=== PATIENT | female | born 1960 | race Two or more races ===

== ENCOUNTER → 2024-05-07 | Outpatient (CLI) | payer OTHER, SELFPAY ==
--- NOTE | 2024-05-07 10:30 | XR_ITS ---
Examination: Breast ultrasound, unilateral, right complete Date and time of exam: May 07, 2024 1044 hours INDICATIONS: Outside mammogram January 24, 2024 11 mm focal asymmetry upper outer right breast Technique: Real-time shahid scale ultrasonographic imaging performed right breast including all 4 quadrants as well as nipple retroareolar and axillary region. Findings: 9:00 cyst 6 x 4 x 5 mm 10:00 oval mass versus glandular tissue 10 x 5 x 10 mm IMPRESSION: BI-RADS Category 3: Probably benign findings 10:00 oval mass versus glandular tissue 10 x 5 x 10 mm, recommend 6 month follow-up right breast sonography to document stability of this 10:00 lesion
--- NOTE | 2024-05-07 11:15 | XR_ITS ---
Examination: Diagnostic digital mammography, unilateral, right Computer aided detection 3-D breast Tomosynthesis, unilateral Date and time of exam: May 07, 2024 1058 hours INDICATIONS: Outside mammogram January 24, 2024 11 mm focal asymmetry upper outer right breast Technique: Nonmagnified MLO, CC views of the right breast have been obtained, reconstructed from 3-D Tomosynthesis images. R2 computer aided detection program utilized for evaluation of suspicious masses and/or abnormal calcifications. 3-D Tomosynthesis images obtained. Findings: Scattered areas of fibroglandular density Focal asymmetry persists in the outer right breast on the spot compression views Impression: BI-RADS category 3: Probably benign findings Recommend 1 additional 6 month right mammogram follow-up to document stability of focal asymmetry outer right breast on the spot compression view
== END | disposition home or self-care (01) ==
LOC: CDIM 10:13
PROVIDERS: PCP Family Medicine; Referring Provider Family Medicine; Visit Provider Family Medicine
DX: R92.331 Mammographic heterogeneous density, right breast (principal); N64.89 Other specified disorders of breast; R92.8 Other abnormal and inconclusive findings on diagnostic imaging of breast
CPT/HCPCS: 76641; 77061; 77065; G0279

== ENCOUNTER → 2024-10-26 | Outpatient (CLI) | payer OTHER, SELFPAY ==
--- NOTE | 2024-10-26 09:15 | XR_ITS ---
Examination: Diagnostic digital mammography, unilateral, right Computer aided detection 3-D breast Tomosynthesis, unilateral Date and time of exam: October 26, 2024 0845 hours INDICATIONS: Focal asymmetry outer right breast on outside mammogram January 24, 2024 Technique: Nonmagnified MLO, CC views of the right breast have been obtained, reconstructed from 3-D Tomosynthesis images. R2 computer aided detection program utilized for evaluation of suspicious masses and/or abnormal calcifications. 3-D Tomosynthesis images obtained. Findings: Scattered areas of fibroglandular density Focal asymmetry remains outer right breast Impression: BI-RADS category 0: Incomplete: Need additional imaging evaluation Repeat right breast sonography follow-up is needed to document stability of 10:00 oval mass versus glandular tissue 10 x 5 x 10 mm described on right breast sonogram May 07, 2024
== END | disposition home or self-care (01) ==
LOC: CDIM 08:28
PROVIDERS: Referring Provider Family Medicine; Visit Provider Family Medicine
DX: R92.8 Other abnormal and inconclusive findings on diagnostic imaging of breast (principal)
CPT/HCPCS: 77061; 77065; G0279